=== PATIENT | female | born 1990 | race Caucasian/White ===

== ENCOUNTER 2017-10-27 04:06 | Inpatient (IN) | payer BC, MEDICAID ==
[~2017-10-27] VITALS: Ht 149.9 cm; Wt 61.2 kg
[2017-10-27] MEDS ORDERED: DLR(*) 1000 ML BAG 1,000 ML IV PRN (04:08)
[2017-10-27] MEDS ORDERED: LR(*) 1000 ML BAG 1,000 ML IV PRN (04:08)
[2017-10-27] MEDS ORDERED: OXYTOCIN 30 UNIT/D5LR 500 ML 500 ML IV PRN (04:19)
[2017-10-27] MEDS ORDERED: FAMOTIDINE(*) 20MG/50ML PREMIX 50 ML IVPB PRN (04:19)
[2017-10-27] MEDS ORDERED: LIDOCAINE 1% LOCAL 300 MG/30ML INJ PRN (04:20)
[2017-10-27] MEDS ORDERED: fentaNYL CITR 100 MCG/2 ML AMP IVP PRN (04:20)
[2017-10-27] MEDS ORDERED: cefOXitin SOD 2 GM VIAL 2 GM in NS(*) 0.9% 100 ML BAG 100 ML IVPB PRN (04:20)
[2017-10-27] MEDS ORDERED: LIDOCAINE/SOD BICARB 8.4% SYR SC PRN (04:20)
[2017-10-27] MEDS ORDERED: METOCLOPRAMIDE 10 MG/2 ML SDV IVP PRN (04:20)
[2017-10-27 04:40] VITALS: BP 113/75; Ht 149.9 cm; Wt 61.2 kg
[2017-10-27 04:46] LABS: PLATELET COUNT, AUTOMATED 340 K/uL (150-450)
[2017-10-27] MEDS ORDERED: ONDANSETRON 4 MG/2 ML VIAL IVP PRN (04:50)
[2017-10-27] MEDS ORDERED: ACETAMINOPHEN 500 MG TAB PO PRN (04:50)
[2017-10-27] MEDS ORDERED: PREN-127 PO (06:00)
[2017-10-27] MEDS ORDERED: EPIDURAL KEYS XX PRN (13:05)
[2017-10-27] MEDS ORDERED: LIDO/EPI 2% MPF 1:200,000 20ML EPI PRN (13:05)
[2017-10-27] MEDS ORDERED: LIDOCAINE/PF 2% 200MG/10ML AMP 200 MG/10 ML AMPUL EPI PRN (13:05)
[2017-10-27] MEDS ORDERED: ePHEDrine 25 MG/5 ML DISP.SYR IVP PRN (13:05)
[2017-10-27] MEDS ORDERED: BUPIVACAINE 0.25% MPF INJ EPI PRN (13:05)
[2017-10-27] MEDS ORDERED: fentaNYL CITR 100 MCG/2 ML AMP IT PRN (13:05)
[2017-10-27] MEDS ORDERED: FENTANYL/ROPIVACAINE 100 ML BAG EPI PRN (13:05)
[2017-10-27] MEDS ORDERED: BUPIVACAINE 0.5% INJ 30ML VIAL EPI PRN (13:05)
--- NOTE | 2017-10-27 13:14 | Anesthesia OB Pre-Anes Eval ---
History of Present Illness Anesthesia Start Date: October 27, 2017 Anesthesia Start Time: 13:00 OB Anesthesia Diagnosis: spontaneous labor, spontaneous ROM EDC: Nov 11, 2017 : 1 Para: 0 Pain Ratin Result Diagram: 10/27/17 0435 Height (Inches): 59.00 Weight (Pounds): 135 BMI Calculated: 27.26 Past Medical History Medical History: no pertinent history Surgical History: no surgical history Attended Childbirth Classes?: No Hx Anesthesia Reactions: No Hx Family Anesthesia Reaction: No Home Meds Reported Medications Vits W-Ca,Fe,Fa(<1MG) ( VITAMINS) 1 Each Tablet, 1 EACH PO DAILY, TAB 10/27/17 Allergies: Coded Allergies: avocado (Verified Adverse Reaction, Mild, NAUSEA/VOMITING, 10/27/17) Anesthesia OB ROS Contacts Statement: no contacts Airway Class: ll GI ROS: clear liquids ASA Classification: 2 Assessment and Plan Anesthesia Plan: LEB Assessment: risks and complications explained. consent signed. CHARITY SHETTY CRNA October 27, 2017 13:14
--- NOTE | 2017-10-27 14:04 | Procedure Note ---
Anesthetic Placement Note Anesthesia Plan: LEB Permit for Anesthesia Signed: Yes Anesthesia Technique: Patient Sitting Anesthesia Prep: Betadine Interspace: L 2-3 Local Anesthetic: 1% Lidocaine Amount Local - cc's: 3 Anesthesia Needle: 17g Touhy/Schliff Anesthesia Attempts: 1 Loss of Resistance: Air Depth of ROSEMARY (cm): 3 Catheter Insertion (cm): 5 Catheter Type: Steen - Spring Wound Epidural Dressing: Tegaderm Anesthesia Tray: Lot Number ([id number]), Expiration Date (2018-04-11), Reference Number ([id number]) Comment: epidural placed without difficulty. mild hypotension treated with ephedrine. pain score before 9, pain score after 0. Anesthesia Medications: Epidural Test Dose: 1.5 Lido/Epi (1:200,000), Dose - mL (5), Time (1338), Negative Epidural Loading Dose: 0.2% Ropivicaine, With Fentanyl 2mcg/ml, Dose - ml (8), Time (1343) Epidural Infusion: 0.2% Ropivicaine, With Fentanyl 2mcg/ml, Start Time: (1350) Epidural Pump Setting: Bolus Dose - mL (4), Lockout - Minutes (10), Maintenance Rate - mL/hr (7), Maximum per Hour - mL (15) Complications: None CHARITY SHETTY CRNA October 27, 2017 14:04
--- NOTE | 2017-10-27 15:27 | Anesthesia Progress Note ---
Progress/Maintenance Anesthesia Note Date: October 27, 2017 Anesthesia Note Time: 15:20 Pain Intensity: 0 Pump: On Pump Rate (ML/HR): 7 Dilatation: 5 Position: Right, Left, Tilt, Semi-Fowlers Anesthesia Treatment: tubing disconect. cleansed cut with sterile scissors reconected. CHARITY SHETTY CRNA October 27, 2017 15:27
--- NOTE | 2017-10-27 16:56 | Anesthesia Progress Note ---
Progress/Maintenance Anesthesia Note Date: October 27, 2017 Anesthesia Note Time: 16:15 Pain Intensity: 0 Pump: On Pump Rate (ML/HR): 7 Sensory Level: T-12 Motor Level: Bending Knees-Bilateral Dilatation: 5 Position: Right, Tilt Report Received From: Other (Gabino Escobar CRNA) Report Time: 16:00 Care Assumed By: Carley Cristina CRNA Time Care Assumed: 16:00 Assessment and Plan Assessment Pt. states she is very comfortable, feeling only "tightening" with contractions. States she can move her legs and describes them as "asleep". Reinstructed her to notify RN or SALES AND MARKETING SPECIALIST is she feels the need to "push her button". CARLEY CRISTINA CRNA October 27, 2017 16:56
--- NOTE | 2017-10-27 17:09 | History & Physical ---
History of Present Illness Age of Patient: 27 : 1 Para or TPAL: 0 EDC per LMP: Nov 11, 2017 Estimated Gestational Age: 37.6 Chief Complaint leaking water History of Present Illness Presented in labor leaking water since this AM at 0300. Cervix 3 cm on admission and progressed to 4 cm at my exam 1030. Pitocin added to consolidate contractions better. Has progressed to 5 cm at 1500 and just now 9 cm. Rapid progression following epidural. uncomplicated but due to FOB having history of coarctation of aorta it was recommended that her baby get a echo. Otherwise uncomplicated course. GBS negative, Rubella immune, O pos. Past Medical, Surgical, Family and Obstetric Histories reviewed. Please see ACOG chart. History Allergies: Coded Allergies: avocado (Verified Adverse Reaction, Mild, NAUSEA/VOMITING, 10/27/17) Med Rec Home Meds Reported Medications Vits W-Ca,Fe,Fa(<1MG) ( VITAMINS) 1 Each Tablet, 1 EACH PO DAILY, TAB 10/27/17 Review of Systems All Systems Reviewed/Normal: Yes, Except as Noted Other as per HPI Exam General Exam Vital Signs Vital Signs Date Time Temp Pulse Resp B/P (MAP) Pulse Ox O2 Delivery O2 Flow Rate FiO2 10/27/17 04:40 97.7 74 18 113/75 (88) 97 Room Air General Apperance: Alert/Awake/No Acute Distress Neuro: No Gross deficits Cardiovascular: Regular Rate and Rhythm Respiratory: No Respiratory Distress Abdomen: Soft, Non-Tender, Non-Distended, Gravid - Non-Tender Psychological: Alert & Oriented X3, Appropriate Mood & Affect Cervical Dialation: 9 Cervical Effacement (%): 100 Cervical Consistency: Soft Cervical Position: Anterior Station: +2 Presentation: Vertex (CARINA) Fetus Heart Tone Variabilty: Moderate FHT Accelerations: 15X15 FHT Category: I Medical Decision Making Data Points Result Diagram: 10/27/17 0435 VTE Prophylasis: Adult Deep Vein Thrombosis/Pulmonary: No Pharmacological Contraindicati: Pt at Low Risk for VTE Mechanical Contraindications: Pt at Low Risk for VTE 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 ZHENG MELÉNDEZ MD October 27, 2017 17:08
--- NOTE | 2017-10-27 18:30 | Anesthesia Progress Note ---
Progress/Maintenance Anesthesia Note Date: October 27, 2017 Anesthesia Note Time: 18:30 Pain Intensity: 0 Pump: On Pump Rate (ML/HR): 3 Sensory Level: T-10 Motor Level: Bending Knees-Bilateral Dilatation: 10 Position: Semi-Fowlers Assessment and Plan Assessment Pump rate decreased to 3ml/hr. Pt. startingto push. States she is numb up to mid chest. CARLEY CHEEK CRNA October 27, 2017 18:30
--- NOTE | 2017-10-27 19:56 | Labor Progress Note ---
Labor Subjective Progress Notes Subjective Complete and pushing since 1845. Little progress made since last exam. FHTs reassuring. Labor Objective Vital Signs Vital Signs Date Time Temp Pulse Resp B/P (MAP) Pulse Ox O2 Delivery O2 Flow Rate FiO2 10/27/17 04:40 97.7 74 18 113/75 (88) 97 Room Air Fetus Heart Tone Variabilty: Moderate FHT Accelerations: 15X15 FHT Decelerations: Early FHT Category: I Other Result Diagram: 10/27/17 0435 Assessment and Plan Problems: (1) 37 weeks gestation of (2) Normal labor Assessment & Plan: Continue coaching and pushing effectively. Expecting but depending on maternal exhaustion, may need assistance. ZHENG MELÉNDEZ MD October 27, 2017 19:56
[2017-10-27] MEDS ORDERED: METHYLERGONOVINE MAL 0.2MG/ML ONE (20:46)
[2017-10-27] MEDS ORDERED: CARBOPROST TROMETHAM 250MCG/ML IM ONLY ONE ×2 (20:46→20:47)
[2017-10-27] MEDS ORDERED: BENZOCAINE 20% 60 ML BTL TP PRN (21:10)
[2017-10-27] MEDS ORDERED: DIPHTH/TETANUS/ACEL. PERTUSSIS IM ONLY ONE (21:10)
[2017-10-27] MEDS ORDERED: HYDROmorphone HCL 2 MG TAB PO PRN (21:10)
[2017-10-27] MEDS ORDERED: INFLUENZA VIRUS VAC 0.5 ML SYR IM ONLY ONE (21:10)
[2017-10-27] MEDS ORDERED: GLYCERIN/WITCH HAZEL LEAF 1 PK TP PRN (21:10)
[2017-10-27] MEDS ORDERED: MEASLES,MUMP,RUBELLA VAC 0.5ML SUBQ ONE (21:10)
[2017-10-27] MEDS ORDERED: LANOLIN OINT 7 GM TUBE TP PRN (21:10)
[2017-10-27] MEDS ORDERED: MAGNESIUM HYDROXIDE* 30ML UDCP PO PRN (21:10)
[2017-10-27] MEDS ORDERED: ACETAMINOPHEN 325 MG TAB PO PRN (21:10)
[2017-10-27] MEDS ORDERED: HYDROCORTISONE 2.5% CR 30GM TB PR PRN (21:10)
--- NOTE | 2017-10-27 21:23 | OB Delivery Note ---
Delivery Note Vaginal Delivery Type: Forceps (closed simpsons), Low (+3/3 station; CARINA) Delivery Date: October 27, 2017 Delivery Time: 20:51 Estimated Gestational Age(wks): 37.5 Delivery Anesthesia: Epidural Sex: Female Apgars: 1 Minute (8), 5 Minute (9) Repair Needed: Laceration, 2nd Degree Estimated Blood Loss: 100 Delivery Complications: Laceration Notes: Presented in labor and progressed regularly to complete at 1813 today. Pushing for 2 hours with little progress and an ineffective push. Pt becoming frustrated and tearful. Informed consent given for forceps assistance. Pt consent obtained. Bladder drained and presentation confirmed in CARINA. Closed Simpsons applied to baby's head easily and without complication. Over the next contraction, gentle assistance provided and progressed quickly resumed and baby began to crown. Ritkin maneuver performed to stabilize the perineum and head delivered without complication. Shoulders delivered without manipulation with a maternal push and remainder of baby delivered. Placenta delivered spontaneous and intact. Uterus massaged firm. Second degree laceration noted and repaired with 2-0 chromic without complication. Bleeding minimal upon completion. E Commerce Strategist in Attendence: No Copies to: ZHENG MELÉNDEZ MD, TRAVIS MD October 27, 2017 21:23
--- NOTE | 2017-10-27 21:38 | Anesthesia Progress Note ---
Progress/Maintenance Anesthesia Note Date: October 27, 2017 Anesthesia Note Time: 21:30 Pain Intensity: 0 Pump: Off Motor Level: Bending Knees-Bilateral Position: Semi-Fowlers Drug Bolus: 0.5% Marcaine (5 ml at 2044) Assessment and Plan Assessment Plan: forceps delivery. Bolus with 5 ml of 0.5% Marcaine plain. Excellent tolerance of delivery and repair work. Patient instructed the first ambulation is to be with help of nursing staff. Instructed to preform deep knee bends at bedside before walking. Anesthesia Stop Day: October 27, 2017 Anesthesia Stop Time: 21:00 Epidural Catheter Removal: Removed Catheter Intact, Yes, Removed by: (Johnson Cristina CRNA) Removal Date: October 27, 2017 Removal Time: 21:30 CARLEY CRISTINA CRNA October 27, 2017 21:37
[2017-10-27 23:17] VITALS: BP 118/67
[2017-10-28 00:12] VITALS: BP 97/61
[2017-10-28] MEDS ORDERED: IBUPROFEN 800 MG TAB PO SCH (01:00)
[2017-10-28 03:29] VITALS: BP 101/62
[2017-10-28] MEDS: IBUPROFEN 800 MG TAB PO SCH ×4 (06:20→21:31)
[2017-10-28 08:43] VITALS: BP 113/64
[2017-10-28] MEDS: DOCUSATE CALCIUM 240 MG CAP PO SCH ×2 (09:00→21:31)
--- NOTE | 2017-10-28 11:31 | OB/GYN Progress Note ---
OB Subjective Progress Notes Subjective Doing well. Pain controlled and ambulating well. Voiding well. Bleeding light. OB Objective Physical Exam Vital Signs Date Time Temp Pulse Resp B/P (MAP) Pulse Ox O2 Delivery O2 Flow Rate FiO2 10/28/17 03:29 98.4 80 13 101/62 (75) 95 Room Air Intake and Output 10/29/17 07:00 Intake Total 120 ml Balance 120 ml Intake Oral 120 ml General Appearance: Alert/Awake/No Acute Distress Neurological: No Gross deficits Cardiovascular: Normal Rhythm & Peripheral Pulses, Regular Rate and Rhythm Respiratory: No Respiratory Distress, Clear to Auscultation Abdomen: Soft, Non-Tender, Non-Distended, Fundus Firm Integumentary: Skin Intact without Lesions or Rash Psychological: Alert & Oriented X3, Appropriate Mood & Affect Result Diagram: 10/28/17 0603 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 ZHENG MELÉNDEZ MD October 28, 2017 11:31
[2017-10-28] MEDS ORDERED: IBUP800T37 PO (11:34)
[2017-10-28] MEDS ORDERED: HYDR2TAB4 PO (11:34)
[2017-10-28 12:53] VITALS: BP 138/77
[2017-10-28 15:35] VITALS: BP_SYST 112; BP_SYST 138; BP_DIAS 77; BP_DIAS 79
[2017-10-28 20:15] VITALS: BP 119/73
[2017-10-29 00:05] VITALS: BP 116/66
[2017-10-29 02:40] VITALS: BP 111/75
[2017-10-29] MEDS: IBUPROFEN 800 MG TAB PO SCH (05:35)
[2017-10-29 07:40] VITALS: BP 116/75
[2017-10-29] MEDS: DOCUSATE CALCIUM 240 MG CAP PO SCH (08:59)
--- NOTE | 2017-10-29 09:54 | OB/GYN Progress Note ---
OB Subjective Progress Notes Subjective Doing well. Pain minimal and ambulating well. Bleeding light GI: NEG Nausea : Voiding Well Pain: Mild OB Objective Physical Exam Vital Signs Date Time Temp Pulse Resp B/P (MAP) Pulse Ox O2 Delivery O2 Flow Rate FiO2 10/29/17 07:40 97.6 85 18 116/75 (89) 10/29/17 00:05 Room Air 10/28/17 03:29 95 Intake and Output 10/30/17 07:00 Intake Total 120 ml Balance 120 ml Intake Oral 120 ml # Voids 1 General Appearance: Alert/Awake/No Acute Distress Neurological: No Gross deficits Cardiovascular: Normal Rhythm & Peripheral Pulses, Regular Rate and Rhythm Respiratory: No Respiratory Distress, Clear to Auscultation Abdomen: Soft, Non-Tender, Non-Distended, Fundus Firm Integumentary: Skin Intact without Lesions or Rash Psychological: Alert & Oriented X3, Appropriate Mood & Affect Result Diagram: 10/28/17 0603 Assessment and Plan 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 Reviewed discharge instructions and precautions. ZHENG MELÉNDEZ MD October 29, 2017 09:54
--- NOTE | 2017-10-29 10:24 | Anesthesia Post Eval Note ---
Anesthesia Post Eval Note Vital Signs Date Time Temp Pulse Resp B/P (MAP) Pulse Ox O2 Delivery O2 Flow Rate FiO2 10/29/17 07:40 97.6 85 18 116/75 (89) 10/29/17 00:05 Room Air 10/28/17 03:29 95 Pt able to participate in Eval: Yes Cardiovascular Status: Satisfactory Respiratory Status: Satisfactory Pain Managment: Satisfactory PO Nausea/Vomiting: Satisfactory Temperature Management: Satisfactory Mental Status: Satisfactory, Alert, Oriented X3 Post-Op Hydration Status: Satisfactory, Tolerating PO Well, Voiding w/o Difficulty Anesthesia Type: LEB Anesthesia Tolerance: Tolerated procedure well without apparent anesthetic complications. LP site clear, no redness or edema. Denies headache or any residual paresthesia. Vital Signs Stable, Patient comfortable and condition stable. CARLEY CHEEK CRNA October 29, 2017 10:24
== END 2017-10-29 12:05 | disposition home or self-care (01) | DRG 775 ==
LOC: OB 04:06
PROVIDERS: ADMIT Obstetrics & Gynecology; ATTEND Obstetrics & Gynecology
PROC: 10D07Z3 Extraction of Products of Conception, Low Forceps, Via Natural or Artificial Opening (ICD-10-PCS; principal; 2017-10-27)
PROC: 0KQM0ZZ Repair Perineum Muscle, Open Approach (ICD-10-PCS; 2017-10-27)
DX: O75.81 Maternal exhaustion complicating labor and delivery (principal); O70.1 Second degree perineal laceration during delivery; Z3A.37 37 weeks gestation of pregnancy; Z37.0 Single live birth
CPT/HCPCS: 85025; 85027; 86850; 86900; 86901; J2590; J7120